=== PATIENT | female | born 1990 | race Caucasian/White ===

== ENCOUNTER 2018-08-27 18:13 | Inpatient (IN) | payer BC ==
[2018-08-27] MEDS ORDERED: Tranexamic Acid 1,000 MG in Sodium Chloride 0.9% 100 ML IV PRN (20:41)
[2018-08-27] MEDS ORDERED: Sodium Chloride 0.9% 10 ML Syringe FLUSH PRN (20:41)
[2018-08-27] MEDS ORDERED: Lidocaine 1% 50 ML MDV INJECT PRN (20:41)
[2018-08-27] MEDS ORDERED: Misoprostol 200 MCG Tab PO PRN (20:41)
[2018-08-27] MEDS ORDERED: Methylergonovine 0.2 MG/1 ML Amp IM PRN (20:41)
[2018-08-27] MEDS ORDERED: Nalbuphine 10 MG/1 ML Vial IVPUSH PRN (20:41)
[2018-08-27] MEDS ORDERED: Sodium Chloride 0.9% 2.5 ML Syringe FLUSH PRN (20:41)
[2018-08-27] MEDS ORDERED: Carboprost Tromethamine 250 MCG/1 ML Amp IM PRN (20:41)
[2018-08-27] MEDS ORDERED: Water For Irrigation,Sterile 1,000 ML Container IRR PRN (20:41)
[2018-08-27] MEDS ORDERED: Oxytocin/0.9 % Sodium Chloride 30 UNIT/500 ML BAG IV SCH (20:45)
--- NOTE | 2018-08-27 21:21 | PCM.LDHP ---
L&D History of Present Illness - General Date of Service: 08/27/18 Admit Problem/Dx: Patient Status Order with Admit Dx/Problem 08/27/18 20:41 Patient Status [ADT] Routine Admission Diagnosis/Problem Admission Diagnosis/Problem Source of Information: Patient History Limitations: Reports: No Limitations - History of Present Illness Improves with: Reports: None Worsens with: Reports: None Associated Symptoms: Reports: N - Related Data Allergies/Adverse Reactions: Allergies Allergy/AdvReac Type Severity Reaction Status Date / Time Penicillins Allergy Hives Verified 08/27/18 20:39 Home Medications: Home Meds PNV #116/Iron Fumarate/FA/DHA [Expecta Combo Pack] 1 tab PO 08/27/18 [ History] H&P Review of Systems - Review of Systems: Review Of Systems: See Below General: Reports: No Symptoms HEENT: Reports: No Symptoms Pulmonary: Reports: No Symptoms Cardiovascular: Reports: No Symptoms Gastrointestinal: Reports: No Symptoms Genitourinary: Reports: No Symptoms Musculoskeletal: Reports: No Symptoms Skin: Reports: No Symptoms Psychiatric: Reports: No Symptoms Neurological: Reports: No Symptoms Hematologic/Lymphatic: Reports: No Symptoms Immunologic: Reports: No Symptoms L&D Exam - Exam Exam: See Below - Vital Signs Weight: 74.843 kg - OB Specific Fundal Height In cm: 38 Contraction Intensity: Moderate Movement: Active Heart Tones: Present Presentation: Vertex - Peace Score Peace Score Cervix Position: Anterior Peace Score Consistency: Soft Peace Score Effacement: >80% Peace Score Dilation: 3-4 cm Peace Score 's Station: -2 Peace Score Total: 10 - Exam General: Alert, Oriented HEENT: PERRLA, Conjunctiva Clear, EACs Clear, EOMI, Hearing Intact, Mucosa Moist & [place], Nares Patent, Normal Nasal Septum, Posterior Pharynx Clear, TMs Clear Neck: Supple, Trachea Midline Lungs: Clear to Auscultation, Normal Respiratory Effort Cardiovascular: Regular Rate, Regular Rhythm GI/Abdominal Exam: Normal Bowel Sounds, Soft, Non-Tender, No Organomegaly, No Distention, No Abnormal Bruit, No Mass, Pelvis Stable Rectal Exam: Normal Exam, Normal Rectal Tone Genitourinary: Normal external exam, Normal bimanual exam, Normal speculum exam Back Exam: Normal Inspection, Full Range of Motion Extremities: Normal Inspection, Normal Range of Motion, Non-Tender, No Pedal Edema, Normal Capillary Refill Skin: Warm, Dry, Intact Neurological: Cranial Nerves Intact, Reflexes Equal Bilateral Psychiatric: Alert, Normal Affect, Normal Mood Problem List Initiated/Reviewed/Updated: Yes Orders Last 24hrs: Active Orders 24 hr Category Date Time Status Patient Status [ADT] Routine ADT 08/27/18 20:41 Active Heart Tones [RC] CONTINUOUS Care 08/27/18 20:41 Active Non Stress Test [RC] PER UNIT ROUTINE Care 08/27/18 20:41 Active May Shower [RC] ASDIRECTED Care 08/27/18 20:41 Active Notify Provider [RC] PRN Care 08/27/18 20:41 Active Up ad Tati [RC] ASDIRECTED Care 08/27/18 20:41 Active Vaginal Exam [RC] PRN Care 08/27/18 20:41 Active Vital Signs [RC] PER UNIT ROUTINE Care 08/27/18 20:41 Active Regular Diet [DIET] Diet 08/28/18 Breakfast Active CBC W/O DIFF,HEMOGRAM [HEME] Routine Lab 08/27/18 21:04 Received TYPE AND SCREEN [BBK] Routine Lab 08/27/18 21:04 Received Butorphanol [Stadol] Med 08/27/18 20:41 Active 1 mg IVPUSH Q1H PRN Carboprost Tromethamine [Hemabate DS] Med 08/27/18 20:41 Active 250 mcg IM ASDIRECTED PRN Lactated Ringers [Ringers, Lactated] 1,000 ml Med 08/27/18 20:45 Active IV ASDIRECTED Lidocaine 1% [Xylocaine 1%] Med 08/27/18 20:41 Active 50 ml INJECT ONETIME PRN Methylergonovine [Methergine] Med 08/27/18 20:41 Active 0.2 mg IM ASDIRECTED PRN Nalbuphine [Nubain] Med 08/27/18 20:41 Active 10 mg IVPUSH Q1H PRN Oxytocin/0.9 % Sodium Chloride [Oxytocin 30 Unit/500 ML Med 08/27/18 20:45 Active -NS] 30 unit in 500 ml IV TITRATE Sodium Chloride 0.9% [Saline Flush] Med 08/27/18 20:41 Active 10 ml FLUSH ASDIRECTED PRN Sodium Chloride 0.9% [Saline Flush] Med 08/27/18 20:41 Active 2.5 ml FLUSH ASDIRECTED PRN Tranexamic Acid [Cyklokapron] 1,000 mg Med 08/27/18 20:41 Active Sodium Chloride 0.9% [Normal Saline] 100 ml IV ONETIME Water For Irrigation,Sterile [Sterile Water for Med 08/27/18 20:41 Active Irrigation] 1,000 ml IRR ASDIRECTED PRN miSOPROStol [Cytotec] Med 08/27/18 20:41 Active 200 mcg PO ONETIME PRN Scalp Electrode [WOMSER] Per Unit Routine Oth 08/27/18 20:41 Ordered Peripheral IV Insertion Adult [OM.PC] Routine Oth 08/27/18 20:41 Ordered Resuscitation Status Routine Resus Stat 08/27/18 20:41 Ordered Medication Orders Butorphanol Tartrate (Stadol) 1 mg IVPUSH Q1H PRN PRN Reason: Pain Carboprost Tromethamine (Hemabate Ds) 250 mcg IM ASDIRECTED PRN PRN Reason: Post Hemorrhage Lactated Ringer's (Ringers, Lactated) 1,000 mls @ 150 mls/hr IV ASDIRECTED JENNIFFER Oxytocin/Sodium Chloride (Oxytocin 30 Unit/500 Ml-Ns) 30 unit in 500 mls @ 999 mls/hr IV TITRATE JENNIFFER Tranexamic Acid 1,000 mg/ (Sodium Chloride) 110 mls @ 660 mls/hr IV ONETIME PRN PRN Reason: Bleeding Lidocaine HCl (Xylocaine 1%) 50 ml INJECT ONETIME PRN PRN Reason: Laceration repair Methylergonovine Maleate (Methergine) 0.2 mg IM ASDIRECTED PRN PRN Reason: Post Hemorrhage Misoprostol (Cytotec) 200 mcg PO ONETIME PRN PRN Reason: Post Hemorrhage Nalbuphine HCl (Nubain) 10 mg IVPUSH Q1H PRN PRN Reason: Pain (severe 7-10) Sodium Chloride (Saline Flush) 10 ml FLUSH ASDIRECTED PRN PRN Reason: Keep Vein Open Sodium Chloride (Saline Flush) 2.5 ml FLUSH ASDIRECTED PRN PRN Reason: Keep Vein Open Sterile Water (Sterile Water For Irrigation) 1,000 ml IRR ASDIRECTED PRN PRN Reason: delivery Assessment/Plan Comment:: Term in active labor. Sge may have epidural if sge need it.
[2018-08-27] MEDS: Butorphanol 1 MG/ML SDV IVPUSH PRN ×2 (21:22→22:55)
[2018-08-27] MEDS: Lactated Ringers 1,000 ML IV SCH (23:40)
[2018-08-28] MEDS ORDERED: fentaNYL 100 MCG/2 ML SDV ONE (00:05)
[2018-08-28] MEDS ORDERED: Ropivacaine HCl/PF 100 ML ONE (00:06)
[2018-08-28] MEDS ORDERED: Lidocaine HCl/EPINEPHrine 5 ML IJ ONE (00:13)
[2018-08-28] MEDS: Lactated Ringers 1,000 ML IV SCH ×2 (00:39→03:56)
--- NOTE | 2018-08-28 00:39 | PCM.PREANE ---
Preanesthetic Assessment - Anesthesia/Transfusion/Family Hx Anesthesia History: Prior Anesthesia Without Reaction (sedation for wisdom teeth extraction only) Family History of Anesthesia Reaction: No Transfusion History: No Prior Transfusion(s) - Review of Systems General: No Symptoms Pulmonary: No Symptoms Cardiovascular: No Symptoms Gastrointestinal: No Symptoms Neurological: No Symptoms Other: Reports: Anxiety (and pain with labor) - Physical Assessment NPO Status Date: 08/27/18 NPO Status Time: 23:00 (sips/chips) Pulse: 92 O2 Sat by Pulse Oximetry: 99 Blood Pressure: 128/84 Height: 5 ft 2 in Weight: 165 lb ASA Class: 1 Mental Status: Alert & Oriented x3 Airway Class: Mallampati = 2 Dentition: Reports: Normal Dentition Thyro-Mental Finger Breadths: 3 Mouth Opening Finger Breadths: 3 ROM/Head Extension: Full Lungs: Clear to Auscultation, Normal Respiratory Effort Cardiovascular: Regular Rate, Regular Rhythm - Lab Values: Laboratory Last Values WBC 17.62 K/uL (4.0-11.0) H 08/27/18 21:04 RBC 4.31 M/uL (4.30-5.90) 08/27/18 21:04 Hgb 13.0 g/dL (12.0-16.0) 08/27/18 21:04 Hct 37.2 % (36.0-46.0) 08/27/18 21:04 MCV 86.3 fL (80.0-98.0) 08/27/18 21:04 MCH 30.2 pg (27.0-32.0) 08/27/18 21:04 MCHC 34.9 g/dL (31.0-37.0) 08/27/18 21:04 RDW Std Deviation 42.1 fl (28.0-62.0) 08/27/18 21:04 RDW Coeff of Magdi 14 % (11.0-15.0) 08/27/18 21:04 Plt Count 297 K/uL (150-400) 08/27/18 21:04 MPV 10.50 fL (7.40-12.00) 08/27/18 21:04 Nucleated RBC % 0.0 /100WBC 08/27/18 21:04 Nucleated RBCs # 0 K/uL 08/27/18 21:04 Blood Type O POSITIVE 08/27/18 21:04 Antibody Screen NEGATIVE 08/27/18 21:04 - Allergies Allergies/Adverse Reactions: Allergies Allergy/AdvReac Type Severity Reaction Status Date / Time Penicillins Allergy Hives Verified 08/27/18 20:39 - Blood Blood Available: No Product(s) Available: None - Anesthesia Plan Free Text/Narrative:: Labor Epidural - Acknowledgements Anesthesia Type Planned: Epidural Pt an Appropriate Candidate for the Planned Anesthesia: Yes Alternatives and Risks of Anesthesia Discussed w Pt/Guardian: Yes Pt/Guardian Understands and Agrees with Anesthesia Plan: Yes PreAnesthesia Questionnaire - Past Health History Medical/Surgical History: Denies Medical/Surgical History HEENT History: Reports: None Cardiovascular History: Reports: None Respiratory History: Reports: None Gastrointestinal History: Reports: None Genitourinary History: Reports: None DINKEY DRIVER History: Reports: Musculoskeletal History: Reports: None Neurological History: Reports: None Psychiatric History: Reports: None Endocrine/Metabolic History: Reports: None Hematologic History: Reports: None Immunologic History: Reports: None Oncologic (Cancer) History: Reports: None Dermatologic History: Reports: None - Infectious Disease History Infectious Disease History: Reports: None - Past Surgical History Head Surgeries/Procedures: Reports: None HEENT Surgical History: Reports: Oral Surgery, Other (See Below) Other HEENT Surgeries/Procedures: Mobile tooth extraction Cardiovascular Surgical History: Reports: None Respiratory Surgical History: Reports: None GI Surgical History: Reports: None Female Surgical History: Reports: None Endocrine Surgical History: Reports: None Neurological Surgical History: Reports: None Musculoskeletal Surgical History: Reports: None Oncologic Surgical History: Reports: None Dermatological Surgical History: Reports: None - SUBSTANCE USE Smoking Status *Q: Never Smoker Second Hand Smoke Exposure: No Recreational Drug Use History: No - HOME MEDS Home Medications: Home Meds PNV #116/Iron Fumarate/FA/DHA [Expecta Combo Pack] 1 tab PO 08/27/18 [ History] - CURRENT (IN HOUSE) MEDS Current Meds: Current Medications Butorphanol Tartrate (Stadol) 1 mg IVPUSH Q1H PRN PRN Reason: Pain Last Admin: 08/27/18 22:55 Dose: 1 mg Carboprost Tromethamine (Hemabate Ds) 250 mcg IM ASDIRECTED PRN PRN Reason: Post Hemorrhage Lactated Ringer's (Ringers, Lactated) 1,000 mls @ 150 mls/hr IV ASDIRECTED [facility] Last Admin: 08/27/18 23:40 Dose: 999 mls/hr Oxytocin/Sodium Chloride (Oxytocin 30 Unit/500 Ml-Ns) 30 unit in 500 mls @ 999 mls/hr IV TITRATE [facility] Tranexamic Acid 1,000 mg/ (Sodium Chloride) 110 mls @ 660 mls/hr IV ONETIME PRN PRN Reason: Bleeding Lidocaine HCl (Xylocaine 1%) 50 ml INJECT ONETIME PRN PRN Reason: Laceration repair Methylergonovine Maleate (Methergine) 0.2 mg IM ASDIRECTED PRN PRN Reason: Post Hemorrhage Misoprostol (Cytotec) 200 mcg PO ONETIME PRN PRN Reason: Post Hemorrhage Nalbuphine HCl (Nubain) 10 mg IVPUSH Q1H PRN PRN Reason: Pain (severe 7-10) Sodium Chloride (Saline Flush) 10 ml FLUSH ASDIRECTED PRN PRN Reason: Keep Vein Open Sodium Chloride (Saline Flush) 2.5 ml FLUSH ASDIRECTED PRN PRN Reason: Keep Vein Open Sterile Water (Sterile Water For Irrigation) 1,000 ml IRR ASDIRECTED PRN PRN Reason: delivery Discontinued Medications Fentanyl (Sublimaze) Confirm Administered Dose 100 mcg .ROUTE .STK-MED ONE Stop: 08/28/18 00:06 Ropivacaine (Naropin 0.2%) Confirm Administered Dose 100 mls @ as directed .ROUTE .STK-MED ONE Stop: 08/28/18 00:07 Lidocaine/Epinephrine (Lidocaine 1.5%-Epi 1:200,000) Confirm Administered Dose 5 ml IJ .STK-MED ONE Stop: 08/28/18 00:14
[2018-08-28] MEDS ORDERED: Lanolin 100% Cream 7 GM Tube TOP PRN (06:26)
[2018-08-28] MEDS ORDERED: Benzocaine/Menthol 20%-0.5% Spray 78 GM Cannister TOP PRN (06:26)
[2018-08-28] MEDS ORDERED: Docusate Sodium 100 MG Cap PO PRN (06:26)
[2018-08-28] MEDS ORDERED: Acetaminophen 500 MG Tab PO PRN ×2 (06:26)
[2018-08-28] MEDS ORDERED: Witch Hazel Medicated Pads 40/Jar TOP PRN (06:26)
[2018-08-28] MEDS ORDERED: oxyCODONE 5 MG Tab PO PRN (06:26)
[2018-08-28] MEDS ORDERED: Ibuprofen 800 MG Tab PO PRN (06:26)
[2018-08-28] MEDS ORDERED: Bisacodyl 10 MG Supp RECTAL PRN (06:26)
[2018-08-28] MEDS ORDERED: Ibuprofen 400 MG Tab PO PRN (06:26)
--- NOTE | 2018-08-28 07:11 | OR ---
SURGEON: Talha Morris MD DATE OF PROCEDURE: INDICATIONS FOR PROCEDURE: Ms. Walton is a 27-year-old primigravida. She is 38 plus weeks. She is followed in our practice primarily by our nurse title lawyer. The patient's GBS status is negative. She has presented to Labor and Delivery in active labor. At the time of admission, she is 4, 90, vertex, and -3 with intact bag of water. The patient is admitted, and she had regular contraction. heart rate was category I. Then, she had spontaneous rupture of the membrane of clear fluid at 5 cm. She had epidural anesthesia for labor analgesia, and the patient continued to progress without any problem. The patient then became complete, vertex +1 to +2. She started delivering some tachycardia, and she was unable to push adequately to deliver the baby. DESCRIPTION OF PROCEDURE: After consultation with the patient and her and we presented the option for her, we elected to do vacuum extractions, so a kiwi vacuum extraction is applied. With the patient is pushing and me trying to guide the fetus head outside, we accomplished normal spontaneous vaginal delivery of a female fetus. She cried immediately, and the scores and weight are not available at this time. The placenta delivered spontaneously complete and intact. I needed to do a midline episiotomy to hasten the delivery because of the tachycardia. After the delivery of the placenta, episiotomy is repaired with 3-0 Vicryl in layer without any problem. One nuchal cord is noticed. ESTIMATED BLOOD LOSS: 250 to 300 mL. COMPLICATIONS: There was no complication in the labor and the process of the delivery. heart rate was category I through the entire process of the labor. VICENTE / SERVANDO /[id number]
--- NOTE | 2018-08-28 07:37 | PCM48HPAN ---
Post Anesthesia Note - EVALUATION WITHIN 48HRS OF ANESTHETIC Vital Signs in Normal Range: Yes Patient Participated in Evaluation: Yes Respiratory Function Stable: Yes Airway Patent: Yes Cardiovascular Function Stable: Yes Hydration Status Stable: Yes Pain Control Satisfactory: Yes Nausea and Vomiting Control Satisfactory: Yes Mental Status Recovered: Yes Pulse Rate: 92 Blood Pressure: 128/84 - COMMENTS/OBSERVATIONS Free Text/Narrative:: Pt doing well this AM with no complaints post epidural removal.
--- NOTE | 2018-08-29 09:14 | PCM.DCSUM1 ---
Discharge Summary - Hospital Course Diagnosis: Stroke: No - Discharge Data Discharge Date: 08/29/18 Discharge Disposition: Home, Self-Care 01 Condition: Good - Patient Instructions Activity: As Tolerated Driving: Do Not Drive Showering/Bathing: December Shower Notify Provider of: Fever, Nausea and/or Vomiting - Discharge Plan Home Medications: Home Meds PNV #116/Iron Fumarate/FA/DHA [Expecta Combo Pack] 1 tab PO 08/27/18 [ History] Referrals: [facility] [Outside] Talha Morris MD [Physician] - 10/09/18 8:30 am - Discharge Summary/Plan Comment DC Time >30 min.: Yes - General Info Date of Service: 08/29/18 Functional Status: Reports: Pain Controlled - Review of Systems General: Reports: No Symptoms HEENT: Reports: No Symptoms Pulmonary: Reports: No Symptoms Cardiovascular: Reports: No Symptoms Gastrointestinal: Reports: No Symptoms Genitourinary: Reports: No Symptoms Musculoskeletal: Reports: No Symptoms Skin: Reports: No Symptoms Neurological: Reports: No Symptoms Psychiatric: Reports: No Symptoms - Patient Data Vitals - Most Recent: Last Vital Signs Temp 36.6 C 08/29/18 07:30 Pulse 84 08/29/18 07:30 Resp 18 08/29/18 07:30 BP 111/66 08/29/18 07:30 Pulse Ox 97 08/29/18 07:30 Weight - Most Recent: 74.843 kg Lab Results - Last 24 hrs: Laboratory Results - last 24 hr 08/29/18 Range/Units 05:25 Hgb 10.5 L (12.0-16.0) g/dL Hct 30.4 L (36.0-46.0) % Med Orders - Current: Current Medications Acetaminophen (Tylenol Extra Strength) 500 mg PO Q4H PRN PRN Reason: Pain Acetaminophen (Tylenol Extra Strength) 1,000 mg PO Q4H PRN PRN Reason: Pain Benzocaine/Menthol (Dermoplast Pain Relief 20%-0.5% [place]) 78 gm TOP ASDIRECTED PRN PRN Reason: Perineal Comfort Measure Bisacodyl (Dulcolax) 10 mg RECTAL ONETIME PRN PRN Reason: Constipation Butorphanol Tartrate (Stadol) 1 mg IVPUSH Q1H PRN PRN Reason: Pain Last Admin: 01/22/19 22:55 Dose: 1 mg Carboprost Tromethamine (Hemabate Ds) 250 mcg IM ASDIRECTED PRN PRN Reason: Post Hemorrhage Docusate Sodium (Colace) 100 mg PO BID PRN PRN Reason: Constipation Emollient Ointment (Lansinoh Hpa) 0 gm TOP ASDIRECTED PRN PRN Reason: Sore Nipples Lactated Ringer's (Ringers, Lactated) 1,000 mls @ 150 mls/hr IV ASDIRECTED JENNIFFER Last Admin: 08/28/18 03:56 Dose: 150 mls/hr Oxytocin/Sodium Chloride (Oxytocin 30 Unit/500 Ml-Ns) 30 unit in 500 mls @ 999 mls/hr IV TITRATE [facility] Tranexamic Acid 1,000 mg/ (Sodium Chloride) 110 mls @ 660 mls/hr IV ONETIME PRN PRN Reason: Bleeding Ibuprofen (Motrin) 400 mg PO Q4H PRN PRN Reason: Pain Ibuprofen (Motrin) 800 mg PO Q6H PRN PRN Reason: Pain Last Admin: 08/28/18 23:06 Dose: 800 mg Lidocaine HCl (Xylocaine 1%) 50 ml INJECT ONETIME PRN PRN Reason: Laceration repair Methylergonovine Maleate (Methergine) 0.2 mg IM ASDIRECTED PRN PRN Reason: Post Hemorrhage Misoprostol (Cytotec) 200 mcg PO ONETIME PRN PRN Reason: Post Hemorrhage Nalbuphine HCl (Nubain) 10 mg IVPUSH Q1H PRN PRN Reason: Pain (severe 7-10) Oxycodone HCl (Oxycodone) 5 mg PO Q2H PRN PRN Reason: Pain Sodium Chloride (Saline Flush) 10 ml FLUSH ASDIRECTED PRN PRN Reason: Keep Vein Open Sodium Chloride (Saline Flush) 2.5 ml FLUSH ASDIRECTED PRN PRN Reason: Keep Vein Open Sterile Water (Sterile Water For Irrigation) 1,000 ml IRR ASDIRECTED PRN PRN Reason: delivery Witch Viv (Tucks) 1 pad TOP ASDIRECTED PRN PRN Reason: comfort care Discontinued Medications Fentanyl (Sublimaze) Confirm Administered Dose 100 mcg .ROUTE .K-MED ONE Stop: 08/28/18 00:06 Ropivacaine (Naropin 0.2%) Confirm Administered Dose 100 mls @ as directed .ROUTE .NanoVasc-MED ONE Stop: 08/28/18 00:07 Lidocaine/Epinephrine (Lidocaine 1.5%-Epi 1:200,000) Confirm Administered Dose 5 ml IJ .STThe Start Project-MED ONE Stop: 08/28/18 00:14 - Exam General: Reports: Alert, Oriented HEENT: Reports: Pupils Equal, Pupils Reactive, EOMI, Mucous Membr. Moist/[place] Neck: Reports: Supple Lungs: Reports: Clear to Auscultation, Normal Respiratory Effort Cardiovascular: Reports: Regular Rate, Regular Rhythm GI/Abdominal Exam: Normal Bowel Sounds, Soft, Non-Tender, No Organomegaly, No Distention, No Abnormal Bruit, No Mass, Pelvis Stable (Female) Exam: Normal External Exam, Normal Speculum Exam, Normal Bimanual Exam Rectal (Female) Exam: Normal Exam, Normal Rectal Tone Back Exam: Reports: Normal Inspection, Full Range of Motion Extremities: Normal Inspection, Normal Range of Motion, Non-Tender, No Pedal Edema, Normal Capillary Refill Skin: Reports: Warm, Dry, Intact Wound/Incisions: Reports: Healing Well Neurological: Reports: No New Focal Deficit Psy/Mental Status: Reports: Alert, Normal Affect, Normal Mood
== END 2018-08-29 12:10 | disposition home or self-care (01) | DRG 560 ==
LOC: MW.OBCHECK 18:13 → MW.OB 18:15 → MW.OBCHECK 20:41 → MW.OB 20:41 → OBSVTOIN 08-28 06:26 → MW.OB 08-28 13:42
PROVIDERS: ADMIT Obstetrics & Gynecology; ATTEND Obstetrics & Gynecology
PROC: 10D07Z6 Extraction of Products of Conception, Vacuum, Via Natural or Artificial Opening (ICD-10-PCS; principal; 2018-08-28)
PROC: 0W8NXZZ Division of Female Perineum, External Approach (ICD-10-PCS; principal; 2018-08-28)
PROC: 00HU33Z Insertion of Infusion Device into Spinal Canal, Percutaneous Approach (ICD-10-PCS; 2018-08-28)
PROC: 3E0R3BZ Introduction of Anesthetic Agent into Spinal Canal, Percutaneous Approach (ICD-10-PCS; 2018-08-28)
DX: O76 Abnormality in fetal heart rate and rhythm complicating labor and delivery (principal); Z3A.38 38 weeks gestation of pregnancy; Z37.0 Single live birth; Z88.0 Allergy status to penicillin
CPT/HCPCS: 36415; 51702; 59025; 59409; 85014; 85018; 85027; 86850; 86900; 86901; A9270-GY; J0595; J2795; J3010; J7120

== ENCOUNTER 2022-08-16 19:30 | Observation (INO) | payer OTHER, BC | END 2022-08-17 14:08 | disposition home or self-care (01) | LOC: MW.OBCHECK 19:30 → MW.OB 19:30 → MW.OBCHECK 22:00 → MW.OB 22:00 | PROVIDERS: ADMIT Obstetrics & Gynecology; ATTEND Obstetrics & Gynecology | DX: O9A.213 Injury, poisoning and certain other consequences of external causes complicating pregnancy, third trimester (principal); Z3A.31 31 weeks gestation of pregnancy; V89.2XXA Person injured in unspecified motor-vehicle accident, traffic, initial encounter | CPT/HCPCS: 59025; 76819; G0378 ==

== ENCOUNTER 2022-08-16 22:20 | Emergency (ER) | payer OTHER, BC | END 2022-08-16 22:48 | disposition still patient (30) | LOC: MW.ED 22:20 | DX: Z04.1 Encounter for examination and observation following transport accident (principal); Z88.0 Allergy status to penicillin; Z3A.31 31 weeks gestation of pregnancy | CPT/HCPCS: 99283 ==

== ENCOUNTER 2022-10-07 00:52 | Inpatient (IN) | payer BC ==
[2022-10-07] MEDS ORDERED: Butorphanol 1 MG/ML SDV IVPUSH PRN (02:26)
[2022-10-07] MEDS ORDERED: Misoprostol 200 MCG Tab PO PRN (02:26)
[2022-10-07] MEDS ORDERED: Sodium Chloride 0.9% 2.5 ML Syringe FLUSH PRN (02:26)
[2022-10-07] MEDS ORDERED: Sodium Chloride 0.9% 10 ML Syringe FLUSH PRN (02:26)
[2022-10-07] MEDS ORDERED: Water For Irrigation,Sterile 1,000 ML Container IRR PRN (02:26)
[2022-10-07] MEDS ORDERED: Lidocaine 1% 50 ML MDV INJECT PRN (02:26)
[2022-10-07] MEDS ORDERED: Tranexamic Acid 1,000 MG in Sodium Chloride 0.9% 100 ML IV PRN (02:26)
[2022-10-07] MEDS ORDERED: Sodium Chloride 0.9% 20 ML SDV IV PRN (02:26)
[2022-10-07] MEDS ORDERED: Methylergonovine 0.2 MG/1 ML Amp IM PRN (02:26)
[2022-10-07] MEDS ORDERED: Carboprost Tromethamine 250 MCG/1 ML Amp IM PRN (02:26)
[2022-10-07] MEDS ORDERED: Lactated Ringers 1,000 ML IV SCH (02:30)
[2022-10-07] MEDS ORDERED: Oxytocin/0.9 % Sodium Chloride 30 UNIT/500 ML BAG IV SCH (02:30)
[2022-10-07] MEDS ORDERED: Bupivacaine 0.5% 10 ML SDV ONE (02:47)
[2022-10-07] MEDS ORDERED: Ropivacaine/PF 400 MG/200 ML PCA ONE (02:48)
[2022-10-07] MEDS ORDERED: Phenylephrine HCl In 0.9% NaCl 1 MG/10 ML Vial IVPUSH PRN (03:10)
[2022-10-07] MEDS ORDERED: ePHEDrine 50 MG/ML SDV IVPUSH PRN ×2 (03:10)
[2022-10-07] MEDS ORDERED: Ropivacaine HCl/PF 400 MG in Premix Bag 1 BAG EPIDUR SCH (03:15)
[2022-10-07] MEDS ORDERED: Bisacodyl 10 MG Supp RECTAL PRN (04:32)
[2022-10-07] MEDS ORDERED: Lanolin 100% Cream 7 GM Tube TOP PRN (04:32)
[2022-10-07] MEDS ORDERED: Acetaminophen 500 MG Tab PO PRN ×2 (04:32)
[2022-10-07] MEDS ORDERED: Witch Hazel Medicated Pads 40/Jar TOP PRN (04:32)
[2022-10-07] MEDS ORDERED: Ibuprofen 400 MG Tab PO PRN (04:32)
[2022-10-07] MEDS ORDERED: Benzocaine/Menthol 20%-0.5% Spray 78 GM Cannister TOP PRN (04:32)
[2022-10-07] MEDS ORDERED: Ibuprofen 800 MG Tab PO PRN (04:32)
[2022-10-07] MEDS ORDERED: Docusate Sodium 100 MG Cap PO PRN (04:32)
[2022-10-07] MEDS ORDERED: oxyCODONE 5 MG Tab PO PRN (04:32)
[2022-10-07] MEDS ORDERED: Carboprost Tromethamine 250 MCG/1 mL Vial ONE (07:21)
[2022-10-07] MEDS: Phenylephrine HCl In 0.9% NaCl 1 MG/10 ML Vial IVPUSH SCH (07:42)
== END 2022-10-08 15:15 | disposition home or self-care (01) | DRG 560 ==
LOC: MW.OBCHECK 00:52 → MW.OB 00:58 → MW.OBCHECK 02:25 → MW.OB 02:26 → OBSVTOIN 03:19 → MW.OB 08:45
PROVIDERS: ADMIT Obstetrics & Gynecology; ATTEND Obstetrics & Gynecology
PROC: 10E0XZZ Delivery of Products of Conception, External Approach (ICD-10-PCS; principal; 2022-10-07)
PROC: 0UQMXZZ Repair Vulva, External Approach (ICD-10-PCS; 2022-10-07)
PROC: 3E0R3BZ Introduction of Anesthetic Agent into Spinal Canal, Percutaneous Approach (ICD-10-PCS; 2022-10-07)
PROC: 00HU33Z Insertion of Infusion Device into Spinal Canal, Percutaneous Approach (ICD-10-PCS; 2022-10-07)
DX: O44.43 Low lying placenta NOS or without hemorrhage, third trimester (principal); O69.81X0 Labor and delivery complicated by cord around neck, without compression, not applicable or unspecified; O71.82 Other specified trauma to perineum and vulva; Z3A.39 39 weeks gestation of pregnancy; Z37.0 Single live birth; Z88.0 Allergy status to penicillin
CPT/HCPCS: 36415; 59025; 59409; 82803; 84112; 85014; 85018; 85027; 86592; 86850; 86900; 86901; J2590; J2795; J3490; J7120; U0002